=== PATIENT | male | born 1945 | race Caucasian/White ===

== ENCOUNTER → 2017-12-10 | Day surgery (SDC) | payer MEDICARE, OTHER ==
[~2017-12-10] VITALS: Ht 162.6 cm; Wt 95.1 kg
[~2017-12-10] MED LIST: ACETAMINOPHEN 500 MG CPLT PO PRN; ASPI81CH6 CHEW; ATOR10TA15 PO; BALANCED SALT SOLN OPHT IRRIG 15 ML BTL ONE; CARV6.252 PO; CHLORHEXIDINE GLUCONATE 2 % 1 PACK (2 CLOTHS) TOPICAL PRN; DEXAMETHASONE SOD PHOS 4 MG/ML VIAL IV ONE; DEXAMETHASONE SOD PHOS 4 MG/ML VIAL ONE; DO NOT ADM ANY ANTICOAGULANT DRUGS PRN; EPINEPHrine HCL (1:1000) 1 MG/ML VIAL ONE; GLYCOPYRROLATE 1 MG/5 ML SYRINGE IV PUSH ONE; HYDR12.57 PO; LACTATED RINGER'S 1000 ML INJ 1,000 ML IV ONE; LACTATED RINGER'S 1000 ML IV PRN; LIDOCAINE HCL 1% PF 5 ML SYRINGE OTHER ONE; LISI30TA4 PO; ONDANSETRON HCL 4 MG/2 ML VIAL IV ONE; PHENYLEPH/NS 1000 MCG/10 ML SYR IV ONE; POVIDONE IODINE 5% (ANTISEPSIS KIT) 4 APPLICATIONS EACH NARE PRN; PROPOFOL 200 MG/20 ML AMP IV ONE; SODIUM CHLORID 0.9% 500 ML IV PRN; STERILE WATER FOR INJECTION 20 ML VIAL ONE; TERA2CAP3 PO; TOBRAMYCIN/DEXAMETHASONE OPTH OINT 3.5 GM TUBE ONE; TRIAMCINOLONE ACETONIDE/PF 40 MG/ML OPTH VIAL ONE; ceFAZolin INJ 1,000 MG VIAL ONE; ePHEDrine/NS 25 MG/5 ML SYRINGE IV ONE; oxyCODONE/ACETAMINOPHEN 5 MG/325 MG TAB PO PRN
[2017-12-10 08:12] LABS: AUTOMATED NEUTROPHIL # 5.8 TH/MM3 (1.8-7.7); BASOPHIL # 0.1 TH/MM3 (0-0.2); BASOPHIL % 0.8 % (0.0-2.0); EOSINOPHIL # 0.4 TH/MM3 (0-0.4); EOSINOPHIL % 4.1 % (0.0-4.0); HEMATOCRIT 42.2 % (39.0-51.0); HEMOGLOBIN 14.7 GM/DL (13.0-17.0); LYMPHOCYTE # 1.6 TH/MM3 (1.0-4.8); MEAN CELL VOLUME 88.9 FL (80.0-100.0); MEAN CORPUSCULAR HEMOGLOBIN 30.9 PG (27.0-34.0); MEAN CORPUSCULAR HGB CONC 34.8 % (32.0-36.0); MEAN PLATELET VOLUME 8.4 FL (7.0-11.0); MONO % 8.5 % (0.0-8.0); MONOCYTE # 0.7 TH/MM3 (0-0.9); NEUT % 67.6 % (16.0-70.0); PLATELET COUNT 219 TH/MM3 (150-450); RED BLOOD COUNT 4.74 MIL/MM3 (4.50-5.90); RED CELL DISTRIBUTION WIDTH 13.1 % (11.6-17.2); WHITE BLOOD COUNT 8.7 TH/MM3 (4.0-11.0)
[2017-12-10] MEDS: PHENYLEPHRINE HCL 2.5% OPTH SOLN 2 ML BTL LEFT EYE SCH ×4 (08:20→09:05)
[2017-12-10] MEDS: TROPICAMIDE 1% OPHT SOLN 15 ML BTL LEFT EYE SCH ×4 (08:20→09:05)
[2017-12-10] MEDS: CYCLOPENTOLATE HCL 1% OPHT SOLN 2 ML BTL LEFT EYE SCH ×4 (08:20→09:05)
[2017-12-10] MEDS: ATROPINE SULFATE 1% OPHT SOLN 5 ML BTL LEFT EYE SCH ×4 (08:20→09:05)
--- NOTE | 2017-12-10 08:29 | EKG ---
Date Performed: 12/10/2017 Time Performed: 07:28:24 PTAGE: 72 years EKG: SINUS BRADYCARDIA WITH FIRST DEGREE AV BLOCK Cannot rule out INFERIOR MYOCARDIAL INFARCTION , PROBABLY OLD ABNORMAL ECG NO PREVIOUS TRACING DOCTOR: Michael Hua Interpretating Date/Time 12/10/2017 08:28:42
[2017-12-10 11:48] VITALS: BP 120/72; PULSE 61; RESP 18; TEMP 98.1; O2SAT 96
--- NOTE | 2017-12-11 12:41 | MP ---
cc: ZBIGNIEW DOMÍNGUEZ M.D. DATE OF SURGERY: 12/10/2017 PREOPERATIVE DIAGNOSIS: Dense vitreous hemorrhage left eye. POSTOPERATIVE DIAGNOSIS Dense vitreous hemorrhage left eye. PROCEDURE: Trans pars plana vitrectomy with air-fluid exchange, left eye. SURGEON Dr. Zbigniew Domínguez ANESTHESIA General laryngeal mask anesthesia PROCEDURE: Mr. Live is a 72-year-old gentleman who had a vitreous hemorrhage back in December 2016 which was caused by a avulsed retinal blood vessel in the superior temporal mid periphery, laser was applied at the time around the base of the avulsion and the hemorrhage spontaneously cleared. More recently, on or about 12/05/17 he started developing flashing lights and then a painless loss of vision and was found to have a dense vitreous hemorrhage. He wished to proceed electively with vitrectomy and clearing out of the vitreous hemorrhage. The risks and benefits of surgery were discussed with the patient as well as the probability of accelerating cataract formation. Informed consent was obtained and no guarantee was made as to visual outcome. A B scan done in the office prior to surgery did not show retinal detachment with just a dense vitreous hemorrhage. He was brought to [facility] operating room one on the [facility]. Appropriate anesthesia monitoring devices were applied and he was placed under general anesthesia using a laryngeal mask. The left eye was identified as the operative site and then prepped and draped in the usual sterile fashion. A lid speculum was placed at this time an appropriate time-out was called with the surgical team agreeing to the proposed procedure and surgical site. The microscope was brought around and adjusted. Using the Dante 23-gauge valve vitrectomy system the trocar cannulas were placed 4 mm posterior to the limbus after first displacing the conjunctiva and with a beveled entrance. The first was placed at approximately 3 o'clock and verified to be in the posterior chamber. An infusion cannula was affixed to it. It was turned on to additional trocar cannulas were placed at 10 and 2 o'clock. Using the flat contact lens for visualization the eye was entered with the Endo eliminator light pipe and vitrectomy cutter. A core vitrectomy was carried out down to the posterior pole where there was plenty of preretinal hemorrhage which was vacuumed off the surface. There was a clot overlying the retinal vessels the superior temporally. This was amputated and then using the biome wide angle viewing system the peripheral vitreous and blood was removed. The fundus was inspected with the indirect ophthalmoscope and scleral depression. No retinal breaks were found. Using the soft tipped linear extrusion needle a partial air-fluid exchange was performed after which the cannulas were removed one by one with tamponade of the site with a cotton swab and diathermy to the overlying conjunctival wound leaving the eye with good pressure and no visible air leaks. Atropine drops were placed on the cornea and subconjunctival actions of Ancef 125 mg in half cc and Decadron 2 mg in half cc were given at separate sites. The lid speculum was removed and the patient was undraped. TobraDex ointment was placed on the cornea and then the left eye was patched and shielded. 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 He will be asked to perform some face-down positioning tonight and will have an appointment at 11:15 tomorrow morning in the office. MD YOLANDA Aguirre/dewey /10:42 AM /11:26 AM
== END | disposition home or self-care (01) ==
LOC: HSDC 06:53
PROVIDERS: ATTEND Ophthalmology
DX: H43.12 Vitreous hemorrhage, left eye (principal); I10 Essential (primary) hypertension; E78.5 Hyperlipidemia, unspecified; F17.200 Nicotine dependence, unspecified, uncomplicated
CPT/HCPCS: 00145; 67036; 85025; 93005; J0171; J0690; J1100; J2370; J2405; J3010; J7120; J3300